=== PATIENT | female | born 1950 | race Caucasian/White ===

== ENCOUNTER → 2018-08-06 | Outpatient (CLI) | payer MEDICARE, OTHER | LOC: MC.RAD 10:39 | DX: Z12.31 Encounter for screening mammogram for malignant neoplasm of breast (principal); N63.10 Unspecified lump in the right breast, unspecified quadrant ==

== ENCOUNTER → 2018-08-12 | Outpatient (CLI) | payer MEDICARE, OTHER | LOC: MC.RAD 13:14 | DX: N63.14 Unspecified lump in the right breast, lower inner quadrant (principal) | CPT/HCPCS: G0279 ==

== ENCOUNTER 2018-09-17 06:37 | Day surgery (SDC) | payer MEDICARE, OTHER ==
[~2018-09-17] VITALS: Ht 154.9 cm; Wt 65.5 kg
[2018-09-17 07:36] VITALS: BP 157/62; PULSE 65; TEMP 98
[2018-09-17] MEDS ORDERED: VITAMIN D 1001000 IU PO (07:41)
[2018-09-17] MEDS ORDERED: CALCIUM ANTAC1000 M2 PO (07:42)
[2018-09-17] MEDS ORDERED: ICAPS TABLET1 EACH PO (07:43)
[2018-09-17] MEDS ORDERED: NORCO 325 MG-51 TAB PO (15:33)
[2018-09-17 16:00] VITALS: BP 140/63; PULSE 52; TEMP 97.4
--- NOTE | 2018-09-17 16:00 | NUR ---
The patient arrived back to [facility] from the recovery room at this time. The patient appears drowsy but arouses easily to her name. The patient denies any pain or nausea at this time. The patient was given some ice chips at this time. The patient's post operative vital signs were started at this time. The patient's dressing to her right breast appears clean, dry, and intact. The patient has a DILIP drain in place to her incision site at this time. There is minimal drainage in the tubing and no drainage in the bulb at this time. The patient's family was brought back to be at her bedside at this time. Will continue to monitor the patient.
[2018-09-17 16:15] VITALS: BP 138/70; PULSE 51
--- NOTE | 2018-09-17 16:15 | NUR ---
The patient appears to be tolerating the ice chips well and requests to try a muffin and grape juice at this time. The patient's vital signs appear stable. The patient continues to deny any pain or nausea at this time. Will continue to monitor the patient.
[2018-09-17 16:32] VITALS: TEMP 96.8
[2018-09-17 16:35] VITALS: BP 130/78; PULSE 52
--- NOTE | 2018-09-17 16:35 | NUR ---
The patient appears to be tolerating the food and drink well. Dr. Mccallum was at the patient's bedside to speak with her and her family. Call light is within reach. Will continue to monitor the patient.
[2018-09-17 16:45] VITALS: BP 139/69; PULSE 56
--- NOTE | 2018-09-17 16:45 | NUR ---
The patient and her family were instructed on drain care and provided a phamphlet covering DILIP drains care and how to empty the drain and a section to record the date, time and amount of output. They all verbalized understanding and questions were answered at this time. The patient's discharge instructions were also reviewed at this time. Will continue to monitor the patient.
--- NOTE | 2018-09-17 17:00 | NUR ---
The patient ambulated to the bathroom with the stand by assistance of one nurse and appeared to tolerate the activity well. The patient voided without difficulty. The patient's urine was a blue/green color due to the dye that was injected during surgery. The nurse instructed the patient to get dressed and notify the staff when she is ready to have her IV removed.
--- NOTE | 2018-09-17 17:15 | NUR ---
The patient's IV to her left hand was removed and a pressure dressing was applied to the site. The patient is dressed and ready to be escorted out.
--- NOTE | 2018-09-17 17:25 | NUR ---
The patient was escorted out via wheelchair to a private vehicle by [facility]. The patient's belongings and discharge paperwork were sent with her. The patient's family is present to drive her home.
== END 2018-09-17 17:25 | disposition home or self-care (01) ==
LOC: SDCO 06:37
DX: C50.311 Malignant neoplasm of lower-inner quadrant of right female breast (principal); Z17.0 Estrogen receptor positive status [ER+]; M81.0 Age-related osteoporosis without current pathological fracture; Z80.42 Family history of malignant neoplasm of prostate; Z80.1 Family history of malignant neoplasm of trachea, bronchus and lung; Z80.8 Family history of malignant neoplasm of other organs or systems; Z87.891 Personal history of nicotine dependence
CPT/HCPCS: A9541; J1100; J1885; J2250; J2405; J2704; J2795; J3010; J7120; Q9968

== ENCOUNTER 2018-10-01 10:43 | Day surgery (SDC) | payer MEDICARE, OTHER ==
[~2018-10-01] VITALS: Ht 154.9 cm; Wt 64.3 kg
[~2018-10-01 10:43] MED LIST: CALCIUM ANTAC1000 M2 PO; ICAPS TABLET1 EACH PO; NORCO 325 MG-51 TAB PO; VITAMIN D 1001000 IU PO
[2018-10-01 11:13] VITALS: BP 128/63; PULSE 79; TEMP 98.1
[2018-10-01 14:00] VITALS: BP 132/64; PULSE 58; TEMP 97.2
[2018-10-01 14:15] VITALS: BP 127/66; PULSE 80
[2018-10-01 14:30] VITALS: BP 136/74; PULSE 66; TEMP 97.5
--- NOTE | 2018-10-01 14:33 | NUR ---
ARRIVES VIA CART TO BAY 8 FROM OR. ALERT AND ORIENTED X 4. PHYSICIAN AND FAMILY AT BEDSIDE. DENIES PAIN OR NAUSEA. REQUESTS MUFFIN AND JUICE. CALL LIGHT IN REACH.
[2018-10-01 14:45] VITALS: BP 136/68; PULSE 74; TEMP 98.4
[2018-10-01 15:00] VITALS: BP 132/68; PULSE 68
--- NOTE | 2018-10-01 15:00 | NUR ---
DISCHARGE INSTRUCTIONS GIVEN TO PATIENT AND FAMILY. VERBALIZED UNDERSTANDING. WHEELCHAIR ASSISTANCE TO [facility]ERSON[facility].
--- NOTE | 2018-10-01 15:16 | NUR ---
CALL LIGHT REMAINS IN REACH. FAMILY AT BEDSIDE.
== END 2018-10-01 15:00 | disposition home or self-care (01) ==
LOC: SDCO 10:43
DX: C50.311 Malignant neoplasm of lower-inner quadrant of right female breast (principal); Z80.1 Family history of malignant neoplasm of trachea, bronchus and lung; Z80.8 Family history of malignant neoplasm of other organs or systems; Z80.42 Family history of malignant neoplasm of prostate; Z87.891 Personal history of nicotine dependence; K21.9 Gastro-esophageal reflux disease without esophagitis
CPT/HCPCS: J0690; J2405; J2704; J3010; J7120

== ENCOUNTER 2018-11-24 14:58 | Outpatient (RCR) | payer MEDICARE, OTHER | END 2018-12-31 10:28 | disposition home or self-care (01) | LOC: WSPT 14:58 | DX: C50.111 Malignant neoplasm of central portion of right female breast (principal) ==

== ENCOUNTER 2018-12-31 07:05 | Day surgery (SDC) | payer MEDICARE, OTHER ==
[2018-12-31] VITALS (8 sets, daily range): BP systolic 110–12108; BP diastolic 6–88; PULSE 65–82; TEMP 97.8
[~2018-12-31] VITALS: Ht 154.9 cm; Wt 29.6 kg
--- NOTE | 2018-12-31 08:25 | NUR ---
PATIENT TO BAY 5 PER CART ACCOMPANIED BY ENDO STAFF. PATIENT AMBULATED FROM CART TO CHAIR WITH 1 ASSIST. STEADY GAIT. MONITORS APPLIED. VSS. AT BEDSIDE. PATIENT ALERT AND TALKING WITH STAFF.
--- NOTE | 2018-12-31 08:45 | NUR ---
VSS. PATIENT GIVEN LUKE WARM COFFEE AND A MUFFIN. PATIENT DENIES NAUSEA AND DISCOMFORT. PATIENT STATES ALITTLE SLEEPY. AT BEDSIDE.
--- NOTE | 2018-12-31 09:41 | NUR ---
VSS. PATIENT TAKES LUKE WARM COFFEE AND MUFFIN WITHOUT PROBLEMS. PATIENT DENIES NAUSEA AND DISCOMFORT. IV SITE HEPLOCKED. PATIENT GETS DRESSED
--- NOTE | 2018-12-31 09:44 | NUR ---
VSS. PATIENT CONTINUES TO DENY NAUSEA AND PAIN. IV SITE DC'D INTACT WITH CATHETER TIP INTACT. PATIENT GIVEN VERBAL AND WRITTEN DISCHARGE INSTRUCTIONS IN A FOLDER. PATIENT VOICED UNDERSTANDING. [facility]
--- NOTE | 2018-12-31 09:50 | NUR ---
PATIENT TO BAY 3 PER CART ACCOMPANIED BY ENDO STAFF. PATIENT AMBULATES FROM CART TO CHAIR WITH 2 ASSIST. ALITTLE UNSTEADY WHEN AMBULATING. MONITORS APPLIED. REPORT RECEIVED. VSS. PATIENT RESPONDS TO COMMANDS BUT KEEPS EYES CLOSED WHEN TALKING.
--- NOTE | 2018-12-31 10:14 | NUR ---
VSS. PATIENT DENIES NAUSEA AND PAIN. PATIENT DENIES NAUSEA AND PAIN. PATIENT ABLE TO SWALLOW. PATIENT GIVEN GRAPE JUICE AND PUDDING. PATIENT ALITTLE MORE ALERT.
== END 2018-12-31 10:41 | disposition home or self-care (01) ==
LOC: SDCO 07:05
DX: D13.0 Benign neoplasm of esophagus (principal); K22.2 Esophageal obstruction; K44.9 Diaphragmatic hernia without obstruction or gangrene; C50.311 Malignant neoplasm of lower-inner quadrant of right female breast; Z90.11 Acquired absence of right breast and nipple; Z80.1 Family history of malignant neoplasm of trachea, bronchus and lung; Z80.42 Family history of malignant neoplasm of prostate; K21.9 Gastro-esophageal reflux disease without esophagitis; Z92.3 Personal history of irradiation
CPT/HCPCS: OP; J2250; J3010; J7030

== ENCOUNTER → 2019-09-24 | Outpatient (CLI) | payer MEDICARE, OTHER | LOC: MC.RAD 08:22 | DX: Z12.31 Encounter for screening mammogram for malignant neoplasm of breast (principal); C50.111 Malignant neoplasm of central portion of right female breast ==

== ENCOUNTER 2020-01-14 18:46 | Emergency (ER) | payer MEDICARE, OTHER ==
[~2020-01-14] VITALS: Ht 154.9 cm; Wt 65.9 kg
[2020-01-14 19:37] LABS: BASO % 0.5 % (0.0-2.0); EOS # 0.2 (0.0-0.7); EOS % 2.4 % (0-4.0); GRAN # 5.3 (1.4-6.5); GRAN % 70.9 % (42.2-75.2); HEMATOCRIT 37.7 % (37.0-47.0); HEMOGLOBIN 12.4 g/dl (12.5-16.0); LYMPH # 1.5 (1.2-3.4); LYMPH % 19.8 % (20.0-51.0); MEAN CELL VOLUME 90 fl (80.0-100.0); MEAN CORPUSCULAR HEMOGLOBIN 30 pg (27.0-31.0); MEAN CORPUSCULAR HGB CONC 33 g/dl (33.0-37.0); MONO # 0.5 (0.1-0.6); PLATELET COUNT 173 K/mm3 (130-400); REDCELL DISTRIBUTION WIDTH-CV 12.2 % (11.5-14.5)
[2020-01-14 20:02] LABS: ALBUMIN 4.4 gm/dL (3.5-5.0); BILIRUBIN,TOTAL 0.6 mg/dL (0.0-1.0); CALCIUM 10.4 mg/dL (8.4-10.2); CREATININE, serum 0.93 (0.52-1.25); POTASSIUM 4.1 mmol/L (3.4-5.0); TOTAL PROTEIN 7.6 gm/dL (6.4-8.2)
[2020-01-14 21:19] VITALS: BP 142/74; PULSE 72; TEMP 98.4
== END 2020-01-14 21:28 | disposition home or self-care (01) ==
LOC: COL.ER 18:46
PROVIDERS: Physician Assistant
DX: S00.93XA Contusion of unspecified part of head, initial encounter (principal); S20.212A Contusion of left front wall of thorax, initial encounter; Z85.3 Personal history of malignant neoplasm of breast; W11.XXXA Fall on and from ladder, initial encounter; Y93.E8 Activity, other personal hygiene; Y92.009 Unspecified place in unspecified non-institutional (private) residence as the place of occurrence of the external cause
CPT/HCPCS: J7030; Q9967

== ENCOUNTER → 2020-04-25 | Outpatient (RCR) | payer MEDICARE, OTHER | LOC: MKS.ESL.PT | DX: I97.2 Postmastectomy lymphedema syndrome (principal) ==

== ENCOUNTER 2020-05-13 08:45 | Outpatient (RCR) | payer MEDICARE, OTHER | END 2020-07-31 | disposition still patient (30) | LOC: MKS.ESL.PT | DX: I97.2 Postmastectomy lymphedema syndrome (principal) ==

== ENCOUNTER → 2020-09-26 | Outpatient (CLI) | payer MEDICARE, OTHER ==
[~2020-09-26] MED LIST changes: +ZOFRAN ODT4 MG PO
== END ==
LOC: MC.RAD 10:30
DX: Z12.31 Encounter for screening mammogram for malignant neoplasm of breast (principal); Z98.890 Other specified postprocedural states; Z92.3 Personal history of irradiation; Z85.3 Personal history of malignant neoplasm of breast

== ENCOUNTER 2020-12-17 17:43 | Emergency (ER) | payer MEDICARE, OTHER ==
[~2020-12-17] VITALS: Ht 154.9 cm; Wt 68.2 kg
[~2020-12-17 17:43] MED LIST changes: -ZOFRAN ODT4 MG PO
[2020-12-17 17:49] VITALS: TEMP 97.2
[2020-12-17] MEDS ORDERED: ZOFRAN ODT4 MG PO (21:14)
[2020-12-17 21:30] VITALS: BP 140/80; PULSE 65
== END 2020-12-17 21:30 | disposition home or self-care (01) ==
LOC: COL.ER 17:43
DX: T78.40XA Allergy, unspecified, initial encounter (principal); A05.9 Bacterial foodborne intoxication, unspecified; I10 Essential (primary) hypertension
CPT/HCPCS: J1200; J2405; J2930; J7030

== ENCOUNTER → 2021-09-26 | Outpatient (CLI) | payer MEDICARE, OTHER ==
[~2021-09-26] MED LIST changes: +ZOFRAN ODT4 MG PO
== END ==
LOC: MC.RAD 07:59
DX: Z12.31 Encounter for screening mammogram for malignant neoplasm of breast (principal); Z85.3 Personal history of malignant neoplasm of breast; Z92.3 Personal history of irradiation; Z98.890 Other specified postprocedural states

== ENCOUNTER 2022-07-23 13:52 | Outpatient (CLI) | payer MEDICARE, OTHER ==
[~2022-07-23] VITALS: Ht 154.9 cm; Wt 70.3 kg
[2022-07-23] MEDS ORDERED: PRILOSEC 20MG20 MG PO (15:11)
[2022-07-23] MEDS ORDERED: ARIMIDEX1 MG PO (15:11)
[2022-07-23] MEDS ORDERED: LAMISIL250 M1 (15:11)
[2022-07-23 15:15] VITALS: BP 127/80; PULSE 70; TEMP 98
== END 2022-07-23 15:00 | disposition home or self-care (01) ==
LOC: EUO 13:52
DX: M81.0 Age-related osteoporosis without current pathological fracture (principal)
CPT/HCPCS: J3111

== ENCOUNTER 2022-09-18 13:47 | Outpatient (CLI) | payer MEDICARE, OTHER ==
[~2022-09-18 13:47] MED LIST changes: +ARIMIDEX1 MG PO; +LAMISIL250 M1; +PRILOSEC 20MG20 MG PO
[2022-09-18 14:51] VITALS: BP 144/67; PULSE 70; TEMP 97.9
[2022-09-18] MEDS ORDERED: XALATAN EYE DROPS OD (14:56)
== END 2022-09-18 14:58 ==
LOC: EUO 13:47
DX: M81.0 Age-related osteoporosis without current pathological fracture (principal)
CPT/HCPCS: J3111

== ENCOUNTER 2023-02-05 14:02 | Outpatient (CLI) | payer MEDICARE, OTHER ==
[~2023-02-05] VITALS: Ht 154.9 cm; Wt 69.1 kg
[~2023-02-05 14:02] MED LIST changes: +EVENITY (2210 MG/2.3 SQ; +VITAMIND3 5000 PO; +XALATAN EYE DROPS OD
[2023-02-05 14:27] VITALS: BP 127/72; PULSE 74; TEMP 98.2
--- NOTE | 2023-02-05 14:44 | NUR ---
pt tolerated evenity injections well. pt ambulated independently to main lobby following inejctions and vital signs remained within normal limits. new appointment was made and pt free from acute concerns and complaints at time of discharge.
== END 2023-02-05 14:45 | disposition home or self-care (01) ==
LOC: EUO 14:02
DX: M81.0 Age-related osteoporosis without current pathological fracture (principal)
CPT/HCPCS: J3111

== ENCOUNTER 2023-04-02 13:37 | Outpatient (RCR) | payer MEDICARE, OTHER ==
[~2023-04-02] VITALS: Ht 154.9 cm; Wt 69.5 kg
[2023-04-02 13:57] VITALS: BP 126/77; PULSE 74; TEMP 98.1
--- NOTE | 2023-04-02 14:14 | NUR ---
Pt tolerated evenity without issue. She exits dept with steady gait.
== END 2023-04-02 14:14 | disposition home or self-care (01) ==
LOC: EUO 13:37
DX: M81.0 Age-related osteoporosis without current pathological fracture (principal)
CPT/HCPCS: J3111

== ENCOUNTER 2023-05-10 12:53 | Outpatient (CLI) | payer MEDICARE, OTHER ==
[~2023-05-10] VITALS: Ht 154.9 cm; Wt 70.2 kg
[2023-05-10 13:13] VITALS: BP 151/79; PULSE 69; TEMP 97.1
[2023-05-10] MEDS ORDERED: Romosozumab-aqqg 210 MG/2.34 ML 2-Syringe KIT SQ ONE (13:15)
== END 2023-05-10 13:24 | disposition home or self-care (01) ==
LOC: EUO 12:53
DX: M81.0 Age-related osteoporosis without current pathological fracture (principal)
CPT/HCPCS: J3111